=== PATIENT | male | born 1970 | race Caucasian/White ===

== ENCOUNTER 2018-09-10 23:18 | Observation (INO) | payer BC ==
[~2018-09-10] VITALS: Ht 175.3 cm; Wt 85.0 kg
[2018-09-10 23:20] VITALS: BP 150/108
[2018-09-10 23:32] LABS: HEMATOCRIT 52.6 % (42.0-52.0); HEMOGLOBIN 17.8 gm/dL (14.0-18.0); MCH 32.5 pg (26.0-34.0); MCHC 33.8 g/dL (28.0-37.0); PLATELET COUNT 296 thou/uL (150-400); RBC 5.48 mil/uL (4.50-6.00); RDW 15.8 % (10.5-14.5); WBC 25.1 thou/uL (4.0-11.0)
[2018-09-10] MEDS ORDERED: METFORMIN HCL500 MG PO (23:32)
[2018-09-10] MEDS ORDERED: XANAX1 MG PO (23:33)
[2018-09-10] MEDS ORDERED: VIAGRA100 MG PO ×2 (23:34→23:43)
[2018-09-10] MEDS ORDERED: VITAMIN D5000 UNIT PO (23:34)
[2018-09-10] MEDS ORDERED: TESTOSTERON100 MG/ML IM (23:34)
[2018-09-10] MEDS ORDERED: CRESTOR40 MG PO (23:35)
[2018-09-10] MEDS ORDERED: FOSAMAX 70 MG T70 MG PO (23:35)
[2018-09-10 23:38] LABS: ANION GAP 13 mmol/L (7-16); BUN 19 mg/dL (7-18); CALCIUM 9.2 mg/dL (8.5-10.1); CHLORIDE 103 mmol/L (98-107); CO2 22 mmol/L (21-32); CREATININE 1.3 mg/dL (0.7-1.3); GLUCOSE 93 mg/dL (74-106); POTASSIUM 4.1 mmol/L (3.5-5.1); SODIUM 138 mmol/L (136-145)
[2018-09-10] MEDS ORDERED: LISINOPRIL20 MG PO (23:42)
[2018-09-10] MEDS ORDERED: DOXEPIN 10 MG C10 M1 PO (23:42)
[2018-09-10] MEDS ORDERED: MOBIC15 MG PO (23:42)
[2018-09-10] MEDS ORDERED: LOVAZA1000 MG PO (23:43)
[2018-09-10] MEDS ORDERED: ASPIR 8181 MG PO (23:43)
--- NOTE | 2018-09-10 23:46 | NUR ---
PATIENT STATES THAT HE TRAVELS FOR BUSINESS. LAST TRIP TO [place]. PATIENT WAS HAVING LOTS OF TROUBLE WITH [employer] ON THE PLANE RIDE HOME.
[2018-09-10 23:50] LABS: ALBUMIN 4.1 g/dL (3.4-5.0); SGOT 22 U/L (15-37); SGPT 29 U/L (30-65); TOTAL BILIRUBIN 0.4 mg/dL (<0.1-1.0); TOTAL PROTEIN 8.1 g/dL (6.4-8.2); TROPONIN-I <0.06 ng/mL (<0.06)
[2018-09-11 00:01] LABS: ABSOLUTE NEUTROPHILS 14.8 thou/uL (1.4-8.2)
[2018-09-11 00:02] LABS: PLATELET ESTIMATE NORMAL
--- NOTE | 2018-09-11 00:47 | NUR ---
PATIENT TO CT SCAN AT THIS TIME.
--- NOTE | 2018-09-11 01:07 | NUR ---
PATIENT RETURNED FROM CT SCAN AT THIS TIME. SEEMS TO BE MUCH CALMER ON 2L BY NC. TOLERATING WELL.
[2018-09-11 02:11] VITALS: BP 111/62
[2018-09-11 02:35] VITALS: BP 105/73
[2018-09-11 03:10] VITALS: BP 111/65
--- NOTE | 2018-09-11 03:31 | NUR ---
THE PATIENT WAS BROUGHT IN BY EMS AFTER BECOMING UNRESPONSIVE AT HOME. THE PATIENT IS ABLE TO TELL ME THAT HE DID TAKE SOME SLEEPING PILLS, HOWEVER HE DOESN'T KNOW WHAT KIND. HE ALSO STATES THAT HE DRANK YESTERDAY. HE IS SLEEPY, ABLE TO ANSWER SOME QUESTIONS WITH A FEW WORDS BEFORE HE FALLS BACK ASLEEP. HE IS RECEPTIVE TO CARE AT THIS TIME. THE PATIENT'S SIG OTHER WAS APPARENTLY WITH THE PATIENT IN THE ER, BUT HAS SINCE LEFT. THE PATIENT STATES THAT HE DOES WEAR A CPAP AT HOME, BUT HE DOES NOT WANT TO WEAR ONE HERE. MUCH OF THE ADMISSION HISTORY POSSIBLE WAS COMPLETED R/T THE PATIENT'S CONDITION. THE PATIENT STATES THAT HE DOES NOT HAVE TO URINATE AT THIS TIME. THE PATIENT IS CURRENTLY ON 3 L O2 BY TN. THE PATIENT DENIES ANY PAIN. ASSESSMENT CHARTED. WILL CONTINUE TO MONITOR. UNABLE TO TOTALLY ORIENT THE PATIENT TO THE ROOM. ADMISSION INFORMATION LEFT AT THE BEDSIDE.
[2018-09-11 07:00] VITALS: BP 111/74
--- NOTE | 2018-09-11 08:18 | EKG ---
[address] [place] [address] ELECTROCARDIOGRAM REPORT Name: TYRESE MARI Room #: 214-P [facility]..#: [id number] Admission: 09/11/18 Attend Phys: Mannie Thomas MD Discharge: Date of : 74 Report #: [id number] THIS REPORT FOR: //name// [facility] ED Test Date: 2018-09-10 Test Time: 23:32:01 Pat Name: TYRESE MARI Department: Room: 214 Gender: M Lump Inspector: shyam : 1970 Requested By: Chino Reynoso Order Number: [id number] MD: Sky Taylor Measurements Intervals [place] Rate: 100 P: 69 VT: 142 QRS: 89 QRSD: 100 T: 22 QT: 323 QTc: 417 Interpretive Statements Sinus tachycardia RSR' in V1 or V2, right VCD Compared to ECG 02/18/2008 08:44:20 No significant change was found Electronically Signed On 09-11-2018 8:18:28 [employer] by Sky Taylor [email or web address] <ELECTRONICALLY SIGNED> By: Sky Taylor MD, [facility] 09/11/18 0818 [id number] Sky Taylor MD, [facility] /EPI
[2018-09-11 09:51] LABS: URINE BILIRUBIN NEGATIVE (Negative); URINE BLOOD NEGATIVE (Negative); URINE CLARITY CLEAR; URINE COLOR YELLOW; URINE GLUCOSE-RANDOM* NEGATIVE (Negative); URINE KETONES NEGATIVE (Negative); URINE PROTEIN (DIPSTICK) NEGATIVE (Negative); URINE SPECIFIC GRAVITY 1.015 (1.005-1.035)
[2018-09-11 09:52] LABS: URINE LEUKOCYTES-REFLEX NEGATIVE (Negative); URINE NITRITE-REFLEX NEGATIVE (Negative); URINE UROBILINOGEN 0.2 E.U./dl (0.2-1.0)
[2018-09-11 10:00] LABS: AMP/METHAMP Negative (Negative); BARBITURATES Negative (Negative); BENZODIAZEPINES POSITIVE (Negative); COCAINE Negative (Negative); METHADONE Negative (Negative); OPIATES Negative (Negative); PCP Negative (Negative)
[2018-09-11 11:18] VITALS: BP 111/74
--- NOTE | 2018-09-11 17:03 | NUR ---
ASSUMED CARE OF PT AT 0700. PT A&OX4, UP WITH STEADY GAIT. PT BREATHING WELL ON ROOM AIR. DENIES SHORTNESS OF BREATH. PT VITALS WNL EXCEPT PT TACHYCARDIC AT 110-130. DR. ABBASI NOTIFIED WHEN HE ROUNDED ON PT. NO NEW ORDERS. DISCHARGE ORDERS RECEIVED. PT'S SIGNIFICANT OTHER CAME TO HOSPITAL TO TAKE PT HOME. PT AND S.O. COMMUNICATED UNDERSTANDING OF ALL DISCHARGE ORDERS/MEDS AND FOLLOW UP APPTS. IV AND TELEMETRY REMOVED. PT STATED HE HAD ALL BELONGINGS. PT TAKEN TO EXIT BY VOLUNTEER VIA WHEELCHAIR.
== END 2018-09-11 11:56 | disposition home or self-care (01) ==
LOC: ER 23:18 → EROBS 09-11 02:38 → 2N 09-11 02:38 → EROBS 09-11 02:38 → 2N 09-11 02:48 → ENTRNSPT 09-11 11:44 → EDTRNSPTSTS 09-11 11:47 → 2N 09-11 11:56
PROVIDERS: Emergency Medicine; Nurse Practitioner Acute Care; ADMIT Hospitalist
DX: R41.82 Altered mental status, unspecified (principal); D72.829 Elevated white blood cell count, unspecified; Z79.899 Other long term (current) drug therapy; Z88.8 Allergy status to other drugs, medicaments and biological substances